=== PATIENT | female | born 1960 ===

== ENCOUNTER 2019-07-02 16:20 | Emergency (ER) | payer BC, OTHER ==
--- OUTSIDE RECORDS SUMMARY | 2019-07-02 16:41 | XMS REPORT | Continuity of Care Document ---
:1960 External Reference #:[id number] Author Name CECILIA Gregg (transmitted by agent of provider Leonila Cook) Address [address] [place] [address] Care Team Providers Name Role Phone Star Varela MD - Family Medicine Care Team Information Film Writer [phone] [facility]/Search-Referral Care Team Information Film Writer Unavailable Problems Active Problems Provider Date Allergy to bee venom Urmila Burns, SHREYAS-C Onset: 04/30/2019 Social History Type Date Description Comments Sex Unknown Tobacco Use Start: Unknown Patient has never smoked Smoking Status Reviewed: 04/30/19 Patient has never smoked Allergies, Adverse Reactions, Alerts Active Allergies Reaction Severity Comments Date Bactrim 04/30/2019 Trimethoprim 04/30/2019 Medications Active Medications SIG Qnty Indications Ordering Provider Date Epipen 2-Cheng use as directed 4units Z91.030 Donte Canales 04/30/2019 as needed for MD Jamal 0.3mg/0.3ML Solution anaphylaxis. Auto-Inject Pravastatin Sodium take 1 tablet by Unknown mouth at bedtime 20mg Tablets Immunizations Description No Information Available Vital Signs Date Vital Result Comment 05/23/2019 8:42am BP Systolic 107 mmHg BP Diastolic 69 mmHg Height 62 inches 5'2" Weight 132.00 lb BMI (Body Mass Index) 24.1 kg/m2 Heart Rate 74 /min O2 % BldC Oximetry 97 % 04/30/2019 3:50pm BP Systolic 119 mmHg BP Diastolic 77 mmHg Height 62 inches 5'2" Weight 134.00 lb BMI (Body Mass Index) 24.5 kg/m2 Heart Rate 88 /min Respiratory Rate 16 /min O2 % BldC Oximetry 97 % Results Description No Information Available Procedures Description No Information Available Medical Devices Description No Information Available Encounters Type Date Location Provider Dx Diagnosis Office Visit 04/30/2019 Jordan Pan Z91.030 Bee allergy status 4:00p COLLEEN Burns Assessments Date Code Description Provider 04/30/2019 Z91.030 Bee allergy status COLLEEN Vaughan Plan of Treatment No Information Available Functional Status Description No Information Available Mental Status Description No Information Available Referrals Description No Information Available
--- OUTSIDE RECORDS SUMMARY | 2019-07-02 16:41 | XMS REPORT | Summary of Care ---
:1960 Author Organization [facility] Address [address] [place] [address] Care Team Providers Name Role Phone Star Varela Primary Care Provider Reason for Visit Reason Comments Follow Up pt presents for follow up, pt was in [facility] for anaphylaxis to bee stings Encounter Details Date Type Department Care Team Description 06/10/2019 Office Visit [facility] Star Varela MD Hymenoptera allergy (Primary Dx); Practice [address] Mixed hyperlipidemia [address] [place] [address] [place] [address] [phone] Allergies Active Allergy Reactions Severity Noted Date Comments Bactrim Rash 05/11/2012 Vs roseola Bee Sting Anaphylaxis High 06/10/2019 Yellow jackets and paper wasps. documented as of this encounter (statuses as of 06/10/2019) Medications Medication Sig Dispensed Refills Start Date End Date Status pravastatin (PRAVACHOL) Take 20 mg by 30 Tab 2 04/22/2019 Active 20 MG Oral Tab mouth EVERY BEDTIME. documented as of this encounter (statuses as of 06/10/2019) Active Problems Problem Noted Date FAMILY HISTORY OF BREAST CANCER 04/21/2008 PMS 04/21/2008 PND 04/21/2008 ADENOMYOSIS 04/21/2008 documented as of this encounter (statuses as of 06/10/2019) Resolved Problems Problem Noted Date Resolved Date IBS 04/21/2008 05/25/2010 documented as of this encounter (statuses as of 06/10/2019) Immunizations Name Administration Dates Next Due Influenza (IM) Preservative Free 06/22/2018, 05/25/2017, 05/05/2009 TDAP Vaccine 01/06/2016 documented as of this encounter Social History Tobacco Use Types Packs/Day Years Used Date Former Smoker Smokeless Tobacco: Never Used Comments: as a teen for 3 years Alcohol Use Drinks/Week oz/Week Comments Yes 10 Standard drinks or equivalent 8.3 Sex Assigned at Date Recorded Not on file Job Start Date Occupation Industry Not on file Not on file Not on file Travel History Travel Start Travel End No recent travel history available. documented as of this encounter Last Filed Vital Signs Vital Sign Reading Time Taken Comments Blood Pressure 104/64 06/10/2019 1:55 PM EST Pulse 85 06/10/2019 1:55 PM EST Temperature 36.2 06/10/2019 1:55 PM EST C (97.1 F) Respiratory Rate - - Oxygen Saturation 96% 06/10/2019 1:55 PM EST Inhaled Oxygen Concentration - - Weight 60.6 kg (133 lb 9.6 oz) 06/10/2019 1:55 PM EST Height 157.5 cm (5' 2") 06/10/2019 1:55 PM EST Body Mass Index 24.44 06/10/2019 1:55 PM EST documented in this encounter Progress Notes Star Varela MD - 06/10/2019 2:00 PM EST PATIENT: Amanda Fajardo : 1960 DATE OF SERVICE: 06/10/2019 CHIEF COMPLAINT: Chief Complaint Patient presents with Follow Up pt presents for follow up, pt was in [facility] for anaphylaxis to bee stings Subjective HISTORY OF PRESENT ILLNESS: Amanda Fajardo is a 58-y.o. female. She got stung by hymenoptera few months ago. . 6 x , 1 in the neck. Nausea and passed out repeatedly. She required oxygen as was at 88% Was brought to ER where they gave her epi but in a vein so then she had tachycardia and bigeminy and had to stay the night. She is back to baseline and has seen electric well logging operator who determined yellow jacket and paper wasps. Shots are for at least a year In for follow up of hyperlipidemia. no side effects to medicines and LDL down 70 pts. . Denies dizzyness, CP, SOB, or neuro symptoms. Looks like they are not doing anything special with her breast asymmetry Past Medical History: Diagnosis Date ADENOMYOSIS 04/21/2008 FAMILY HISTORY OF BREAST CANCER 04/21/2008 grandmother History of breast surgery rosie bilat bx IBS 04/21/2008 Other postprocedural status(V45.89) benign biopsy one on each breast PMS 04/21/2008 PND 04/21/2008 Postmenopausal Family History Problem Relation Age of Onset Cancer Mother Hodgkin's lymphoma, at age 19 years, soon after Landy was born Hypertension Father Heart Father mi age 64 Breast Cancer Paternal Grandmother 65 Heart Maternal Grandmother CAD Cancer Paternal Grandfather BONE, possibly lung cancer metastatic to bone Current Outpatient Medications Medication Sig pravastatin (PRAVACHOL) 20 MG Oral Tab Take 20 mg by mouth EVERY BEDTIME. No current facility-administered medications for this visit. Allergies Allergen Reactions Bee Sting Anaphylaxis Yellow jackets and paper wasps. Bactrim Rash Vs roseola Social History Socioeconomic History Marital status: Spouse name: Not on file Number of children: Not on file Years of education: Not on file Highest education level: Not on file Occupational History Not on file Social Needs Financial resource strain: Not on file Food insecurity: Worry: Not on file Inability: Not on file Transportation needs: Medical: Not on file Non-medical: Not on file Tobacco Use Smoking status: Former Smoker Smokeless tobacco: Never Used Tobacco comment: as a teen for 3 years Substance and Sexual Activity Alcohol use: Yes Alcohol/week: 8.3 standard drinks Types: 10 Standard drinks or equivalent per week Drug use: No Sexual activity: Not on file Lifestyle Physical activity: Days per week: Not on file Minutes per session: Not on file Stress: Not on file Relationships Social connections: Talks on phone: Not on file Gets together: Not on file Attends mu-ism service: Not on file Active member of club or organization: Not on file Attends meetings of clubs or organizations: Not on file Relationship status: Not on file Intimate partner violence: Fear of current or ex partner: Not on file Emotionally abused: Not on file Physically abused: Not on file Forced sexual activity: Not on file Other Topics Concern Back Care Not Asked Bike Helmet Not Asked Blood Transfusions Not Asked Caffeine Concern Not Asked Exercise Not Asked Hobby Hazards Not Asked International Travel Not Asked Service Not Asked Occupational Exposure Not Asked Seat Belt Not Asked Self-Exams Not Asked Sleep Concern Not Asked Special Diet Not Asked Stress Concern Not Asked Weight Concern Not Asked Social History Narrative Just retired from administration at [employer] Children are grown up, live nearby Taking care of REVIEW OF SYSTEMS: ROS Objective PHYSICAL EXAM: VITALS: BP 104/64 (BP Location: Left arm, Patient Position: Sitting) | Pulse 85 | Temp 97.1 F(36.2 C) | Ht 5' 2" (1.575 m) | Wt 133 lb 9.6 oz ( 60.6 kg) | LMP 01/06/2016 (Exact Date) | SpO2 96% | BMI 24.44 kg/m Body mass index is 24.44 kg/m. Physical Exam Vitals signs reviewed. Cardiovascular: Rate and Rhythm: Normal rate and regular rhythm. Pulmonary: Effort: Pulmonary effort is normal. No respiratory distress. Psychiatric: Mood and Affect: Mood normal. ASSESSMENT / IMPRESSION: ICD-9-CM ICD-10-CM 1. 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 Mixed hyperlipidemia 272.2 E78.2 Getting shots. Has epipen. Keep follow up with allergy and keep yearly follow up with me Plan Author: Star Varela MD 06/10/2019 21:50 documented in this encounter Plan of Treatment Health Maintenance Due Date Last Done Comments ZOSTER IMMUNIZATION SERIES 2009 (1 of 2) INFLUENZA VACCINE (#1) 2019 06/22/2018, 05/25/2017, 05/05/2009 DEPRESSION SCREENING 01/15/2020 01/14/2019 MAMMOGRAM (SCREENING) 01/16/2020 01/15/2019, 11/23/2017, 11/03/2016, Additional history exists COLONOSCOPY SCREENING 06/17/2020 06/17/2010, 06/17/2010 PAP SMEAR 01/14/2022 01/14/2019, 10/28/2015, 10/28/2015, Additional history exists LIPID DISORDER SCREENING 04/22/2024 04/22/2019, 01/14/2019, 11/23/2017, Additional history exists HPV IMMUNIZATION SERIES Aged Out No longer eligible based on patient's age to complete this topic MENINGOCOCCAL VACCINE IMM Aged Out No longer eligible based on patient's age to complete this topic PNEUMOCOCCAL 0-64 YRS Aged Out No longer eligible based on patient's age to complete this topic documented as of this encounter Goals Goal Patient Goal Associated Recent Patient-Stated? Author Type Problems Progress Depression Depression No minal Varela (PHQ-9) MD Star total score < 5 Note: This is an individualized treatment (depression) goal for Amanda Fajardo: Displayed above is your goal for a depression screening (PHQ-9) score that would indicate good control of your depression. Keep a regular sleep schedule Lifestyle No Star Varela MD Note: This is an individualized lifestyle goal for Amanda Fajardo: Please maintain a regular sleep schedule. This may help with some symptoms of depression. Take all prescribed medications as directed Self-management No Star Varela MD Note: This is an individualized self-management goal for Amanda Fajardo: Please take all prescribed medications as directed. 1. Do not skip doses. If you cannot afford your medications, talk with your doctor. 2. Use a pill reminder system such as a pill box if needed. Your pharmacist can help you with this. 3. Contact your Pharmacy 5 days before your medication runs out. If you cannot take your medications for any reasons, talk with your doctor. 4. Please bring all of your medication bottles and inhalers (or a list of all your medications/inhalers) with you to every visit. Potential barriers to meeting all of your care plan goals will continue to be addressed on an ongoing basis. documented as of this encounter Results Not on filedocumented in this encounter Visit Diagnoses Diagnosis Hymenoptera allergy - Primary Allergy to insects and arachnids Mixed hyperlipidemia documented in this encounter Guarantor Name Account Type Relation to Date of Phone Billing Patient Address Amanda Fajardo Personal/Family 1960 [address] (Home) [place], [place] [phone] (Work) documented as of this encounter
[2019-07-02 16:44] VITALS: BP 128/76
[2019-07-02] MEDS ORDERED: Meclizine TAB* 12.5 MG PO ONE (16:55)
--- NOTE | 2019-07-02 16:58 | UC ---
Dizzy HPI HPI Summary: 58-year-old female comes in with a chief complaint of dizziness. In the last day on occasion when she moves her head especially when getting up from lying down or going from standing to lying down she gets a spinning dizziness. Also some fullness of the ears. She's been with her grandchildren and they've had colds and patient feels like she does have some cold symptoms also. No difficulty with vision or speech or weakness or numbness. No vertigo symptoms allow she moves her head. - History Of Current Complaint Chief Complaint: UCGeneralIllness Stated Complaint: DIZZINESS,B/L EAR COMPLAINT Time Seen by Provider: 07/02/19 16:44 Hx Last Menstrual Period: n/a Pain Intensity: 0 - Allergies/Home Medications Allergies/Adverse Reactions: Allergies Allergy/AdvReac Type Severity Reaction Status Date / Time sulfamethoxazole Allergy Intermediate Hives Verified 07/02/19 16:44 [From Bactrim] trimethoprim [From Bactrim] Allergy Intermediate Hives Verified 07/02/19 16:44 Home Medications: Home Medications Allergy Injections 2 admin WEEKLY 07/02/19 [History Confirmed 07/02/19] Pravastatin Sodium 20 mg PO DAILY 07/02/19 [History Confirmed 07/02/19] PMH/Surg Hx/FS Hx/Imm Hx Previously Healthy: Yes Endocrine History: Dyslipidemia - Surgical History Surgical History: None - Family History Known Family History: Positive: Non-Contributory - Social History Alcohol Use: Daily Alcohol Amount: 1-2 daily Substance Use Type: None Smoking Status (MU): Never Smoked Tobacco Review of Systems All Other Systems Reviewed And Are Negative: Yes Constitutional: Positive: Other - SEE HPI Skin: Positive: Negative Eyes: Positive: Negative ENT: Positive: Other - SEE HPI Respiratory: Positive: Negative Cardiovascular: Positive: Negative Gastrointestinal: Positive: Negative Motor: Positive: Negative Neurovascular: Positive: Negative Musculoskeletal: Positive: Negative Neurological: Positive: Other - SEE HPI Psychological: Positive: Negative Is Patient Immunocompromised?: No Physical Exam Triage Information Reviewed: Yes Appearance: Well-Appearing, No Pain Distress, Well-Nourished Vital Signs: Initial Vital Signs Temp 97.8 F 07/02/19 16:39 Pulse 71 07/02/19 16:39 Resp 15 07/02/19 16:39 BP 128/76 07/02/19 16:39 Pulse Ox 100 07/02/19 16:39 Vital Signs Reviewed: Yes Eye Exam: Normal Eyes: Positive: Conjunctiva Clear ENT: Positive: TMs normal. Negative: Nasal drainage Neck: Positive: Supple Respiratory: Positive: Lungs clear, Normal breath sounds, No respiratory distress Cardiovascular: Positive: RRR Musculoskeletal: Positive: Strength Intact, ROM Intact Neurological: Positive: Alert, Muscle Tone Normal, Other: - No focal neurologic deficit Psychological: Positive: Age Appropriate Behavior Skin Exam: Normal Dizzy Course/Dx - Course Course Of Treatment: Symptoms are consistent with peripheral vertigo associated with the beginnings of upper respiratory tract infection. No yellow rhinorrhea or fevers to indicate the need for antibiotics at this time. No focal neurologic deficits no vertigo at rest to indicate a stroke at this time. I did discuss the signs and symptoms of strokes with the patient and that if her symptoms do not improve or worsens she does need to get reevaluated. We'll treat with meclizine 25 mg every 6 hours as needed. Follow-up with primary care doctor , Reevaluate sooner if worse. - Differential Dx/Diagnosis Provider Diagnosis: Dizziness, Vertigo, Upper respiratory infection Discharge ED - Sign-Out/Discharge Documenting (check all that apply): Patient Departure All imaging exams completed and their final reports reviewed: No Studies - Discharge Plan Condition: Stable Disposition: HOME Prescriptions: Meclizine HCl [Motion Sickness Relief] 25 mg PO Q6HR PRN #20 tablet PRN Reason: Vertigo Patient Education Materials: Vertigo (ED), Dizziness (ED) Referrals: Star Varela MD [Primary Care Provider] - Additional Instructions: FOLLOW UP WITH YOUR DOCTOR IF NOT COMPLETELY IMPROVED. GET REEVALUATED SOONER IF NOT IMPROVING OR GO TO THE EMERGENCY DEPARTMENT IF WORSE; WEAKNESS, NUMBNESS, DIFFICULTY WITH VISION OR SPEECH, DIZZINESS THAT DOES NOT IMPROVE OR ANY QUESTIONS OR CONCERNS. - Billing Disposition and Condition Condition: STABLE Disposition: Home
== END 2019-07-02 17:06 | disposition home or self-care (01) ==
LOC: UCCORT 16:20
DX: J06.9 Acute upper respiratory infection, unspecified (principal); R42 Dizziness and giddiness; E78.5 Hyperlipidemia, unspecified; Z79.899 Other long term (current) drug therapy; Z88.2 Allergy status to sulfonamides; Z88.8 Allergy status to other drugs, medicaments and biological substances
CPT/HCPCS: 99212; A9270-GY; G0463

== ENCOUNTER 2019-07-10 10:19 | Emergency (ER) | payer BC ==
[2019-07-10 10:36] VITALS: BP 146/89
--- NOTE | 2019-07-10 11:20 | UC ---
Dizzy HPI HPI Summary: 58 yo female with an 8 day of episodic vertigo which worsens with head change/ position change Worsening Has had mild to mod URI symptoms and right sinus pressure the entire time now with right ear dyscomfort - History Of Current Complaint Chief Complaint: UCDizziness Stated Complaint: VERY DIZZY,RT EAR CLOGGED,POSS VERTIGO Time Seen by Provider: 07/10/19 11:01 Hx Obtained From: Patient Hx Last Menstrual Period: n/a Onset/Duration: Gradual Onset, Lasting Days Timing: Intermittent Episode Lasting - hours Severity Initially: Moderate Severity Currently: Moderate Pain Intensity: 0 Pain Scale Used: 0-10 Numeric Character: Room Spinning Aggravating Factor(s): Position Change, Change In Head Position Alleviating Factor(s): Lying Down Associated Signs And Symptoms: Positive: Unsteady Gait. Negative: Nausea, Vomiting, Diaphoresis, Tinnitus, Chest Pain, SOB, Palpitations, Visual Changes, Decreased Oral Intake, Change In Medication, Change In Diet, OTC Medications - Allergies/Home Medications Allergies/Adverse Reactions: Allergies Allergy/AdvReac Type Severity Reaction Status Date / Time sulfamethoxazole Allergy Intermediate Hives Verified 07/10/19 10:37 [From Bactrim] trimethoprim [From Bactrim] Allergy Intermediate Hives Verified 07/10/19 10:37 bee venom protein (honey bee) Allergy Anaphylatic Verified 07/10/19 10:37 Shock Home Medications: Home Medications Acetaminophen [Acetaminophen Extra Strength] 500 mg PO Q6H PRN 07/10/19 [ History Confirmed 07/10/19] Ibuprofen TAB* [Advil TAB*] 200 mg PO Q4H PRN 07/10/19 [History Confirmed ] PMH/Surg Hx/FS Hx/Imm Hx Previously Healthy: Yes Endocrine History: Dyslipidemia - Surgical History Surgical History: None - Family History Known Family History: Positive: Hypertension, Non-Contributory - Social History Alcohol Use: Daily Alcohol Amount: 1-2 daily Substance Use Type: None Smoking Status (MU): Former Smoker Length of Time of Smoking/Using Tobacco: <1/4 PPD x 1-2 Years When Did the Patient Quit Smoking/Using Tobacco: ~1970s Review of Systems All Other Systems Reviewed And Are Negative: Yes Constitutional: Positive: Fever - herman today Skin: Positive: Negative Eyes: Positive: Negative ENT: Positive: Ear Ache, Nasal Discharge, Sinus Congestion, Sinus Pain/ Tenderness Respiratory: Positive: Negative Cardiovascular: Positive: Negative Gastrointestinal: Positive: Negative Genitourinary: Positive: Negative Motor: Positive: Negative Neurovascular: Positive: Negative Musculoskeletal: Positive: Negative Neurological: Positive: Negative Psychological: Positive: Negative Physical Exam Triage Information Reviewed: Yes Appearance: Well-Appearing, No Pain Distress, Well-Nourished Vital Signs: Initial Vital Signs Temp 97.3 F 07/10/19 10:30 Pulse 71 07/10/19 10:30 Resp 16 07/10/19 10:30 BP 146/89 07/10/19 10:30 Pulse Ox 100 07/10/19 10:30 Vital Signs Reviewed: Yes Eyes: Positive: Conjunctiva Clear, Other: - EOMI/PERRL, no nystagmus ENT: Positive: Hearing grossly normal, Nasal congestion, TM bulging - R, TM dull - R, TM red - slight redness, Uvula midline. Negative: Nasal drainage, Tonsillar swelling, Tonsillar exudate, Trismus, Muffled voice, Hoarse voice, Dental tenderness, Sinus tenderness Neck: Positive: Supple, Nontender, No Lymphadenopathy Respiratory: Positive: Lungs clear, Normal breath sounds, No respiratory distress, No accessory muscle use Cardiovascular: Positive: RRR, No Murmur Musculoskeletal: Positive: ROM Intact, No Edema Neurological: Positive: Alert, Other: - CN2-12 intact, no focal exam Psychological Exam: Normal Skin Exam: Normal Dizzy Course/Dx - Differential Dx/Diagnosis Provider Diagnosis: Vertigo, Right serous otitis media, Viral URI Discharge ED - Sign-Out/Discharge Documenting (check all that apply): Patient Departure All imaging exams completed and their final reports reviewed: No Studies - Discharge Plan Condition: Stable Disposition: HOME Prescriptions: Amoxicillin PO (*) [Amoxicillin 875 MG (*)] 875 mg PO BID #20 tab Fluticasone NASAL SPRAY 50MCG* [Flonase NASAL SPRAY 50MCG*] 2 spray BOTH NARES BID #1 btl Patient Education Materials: Vertigo (ED), Serous Otitis Media (ED) Referrals: Star Varela MD [Primary Care Provider] - If Needed Rj Bowers MD [Medical Doctor] - As Soon As Possible Additional Instructions: recheck for worsening symptoms I suggest you see an ENT...you can ask for a [employer] appt ( I am not sure what days they will be in [employer] this month) no driving with vertigo - Billing Disposition and Condition Condition: STABLE Disposition: Home
== END 2019-07-10 11:26 | disposition home or self-care (01) ==
LOC: UCCORT 10:19
DX: R42 Dizziness and giddiness (principal); J06.9 Acute upper respiratory infection, unspecified; H65.91 Unspecified nonsuppurative otitis media, right ear; Z88.2 Allergy status to sulfonamides; Z91.030 Bee allergy status; Z87.891 Personal history of nicotine dependence
CPT/HCPCS: 99212; G0463